=== PATIENT | male | born 1960 | race Caucasian/White ===

== ENCOUNTER 2017-10-24 05:52 | Emergency (ER) | payer BC ==
[2017-10-24] MEDS ORDERED: Sodium Chloride 0.9% 1,000 ML IV ONE (05:56)
[2017-10-24] MEDS ORDERED: Ondansetron 4 MG/2 ML SDV IVPUSH ONE (05:56)
[2017-10-24] MEDS ORDERED: Ketorolac 30 MG/ML SDV IVPUSH ONE (05:56)
--- NOTE | 2017-10-24 05:57 | EDM.PDOC ---
<Min Andres - Last Filed: 10/24/17 06:09> ED HPI GENERAL MEDICAL PROBLEM - General Stated Complaint: PAIN ON RIGHT SIDE Time Seen by Provider: 10/24/17 05:57 Source of Information: Reports: Patient - History of Present Illness INITIAL COMMENTS - FREE TEXT/NARRATIVE: HISTORY AND PHYSICAL: History of present illness: [Patient presents with loose stools nausea and vomiting since Saturday he's had some increasing right lower quadrant pain over the last 24 hours no fever chills sweats No chest pain shortness breath headache dizziness palpitation no urine symptoms Review of systems: As per history of present illness and below otherwise all systems reviewed and negative. Past medical history: As per history of present illness and as reviewed below otherwise noncontributory. Surgical history: As per history of present illness and as reviewed below otherwise noncontributory. Social history: No reported history of drug or alcohol abuse. Family history: As per history of present illness and as reviewed below otherwise noncontributory. Physical exam: HEENT: Atraumatic, normocephalic, pupils reactive, negative for conjunctival pallor or scleral icterus, mucous membranes moist, throat clear, neck supple, nontender, trachea midline. Lungs: Clear to auscultation, breath sounds equal bilaterally, chest nontender. Heart: S1S2, regular, negative for clicks, rubs, or JVD. Abdomen: Soft, nondistended, tender on deep palpation in the right lower quadrant with guarding no rebound. Negative for masses or hepatosplenomegaly. Negative for costovertebral tenderness. Pelvis: Stable nontender. Genitourinary: Deferred. Rectal: Deferred. Extremities: Atraumatic, negative for cords or calf pain. Neurovascular unremarkable. Neuro: Awake, alert, oriented. Cranial nerves II through XII unremarkable. Cerebellum unremarkable. Motor and sensory unremarkable throughout. Exam nonfocal. Diagnostics: [EBC CMP UA troponin lipase EKG Chest [address] abdomen pelvis with contrast ] Therapeutics: [Liter normal saline bolus Zofran 8 mg IV Toradol 30 mg IV ] Impression: Abdominal pain Definitive disposition and diagnosis as appropriate pending reevaluation and review of above. Abdomen Pain Score (Numeric/FACES): 5 - Related Data Allergies Allergy/AdvReac Type Severity Reaction Status Date / Time No Known Allergies Allergy Verified 10/24/17 06:05 Home Meds: Home Meds Levothyroxine 100 mcg PO ACBRK 11/17/13 [History] Esomeprazole [NexIUM] 10 mg PO DAILY 10/24/17 [History] Past Medical History Other HEENT History: bottom partial Cardiovascular History: Reports: None Respiratory History: Reports: None Gastrointestinal History: Reports: Colon Polyp Other Gastrointestinal History: heartburn Genitourinary History: Reports: None Musculoskeletal History: Reports: None Neurological History: Reports: None Psychiatric History: Reports: None Endocrine/Metabolic History: Reports: Hypothyroidism, Obesity/BMI 30+ Hematologic History: Reports: None Immunologic History: Reports: None Oncologic (Cancer) History: Reports: None Dermatologic History: Reports: None Other Dermatologic History: dry skin - Infectious Disease History Infectious Disease History: Reports: Chicken Pox, Measles - Past Surgical History Other GI Surgeries/Procedures: intestinal polyp Social & Family History - Family History Family Medical History: Noncontributory Cardiac: Reports: Heart Failure Endocrine/Metabolic: Reports: Diabetes, type II Oncologic: Reports: Other (See Below) Other Oncologic Family History: throat - Tobacco Use Smoking Status *Q: Current Every Day Smoker Years of Tobacco use: 5 Packs/Tins Daily: 0.5 Used Tobacco, but Quit: No Second Hand Smoke Exposure: Yes - Alcohol Use Days Per Week of Alcohol Use: 0 Number of Drinks Per Day: 0 Total Drinks Per Week: 0 - Recreational Drug Use Recreational Drug Use: No Drug Use in Last 12 Months: No Course - Vital Signs Last Recorded V/S: Last Vital Signs Temp 36.6 C 10/24/17 06:05 Pulse 77 10/24/17 07:30 Resp 16 10/24/17 07:30 BP 123/74 10/24/17 07:30 Pulse Ox 93 L 10/24/17 07:30 - Orders/Labs/Meds Orders: Active Orders 24 hr Category Date Time Status EKG Documentation Completion [RC] STAT Care 10/24/17 06:26 Active Abdomen Pelvis w Cont [CT] Stat Exams 10/24/17 06:12 Taken Chest 1V Frontal [CR] Stat Exams 10/24/17 06:26 Taken Labs: Laboratory Tests 10/24/17 10/24/17 10/24/17 Range/Units 06:10 06:10 07:09 WBC 11.09 H (4.0-11.0) K/uL RBC 5.07 (4.50-5.90) M/uL Hgb 16.7 (13.0-17.0) g/dL Hct 49.6 (38.0-50.0) % MCV 97.8 (80.0-98.0) fL MCH 32.9 H (27.0-32.0) pg MCHC 33.7 (31.0-37.0) g/dL RDW Std Deviation 52.6 (28.0-62.0) fl RDW Coeff of Steve 15 (11.0-15.0) % Plt Count 242 (150-400) K/uL MPV 10.60 (7.40-12.00) fL Neut % (Auto) 56.1 (48.0-80.0) % Lymph % (Auto) 30.7 (16.0-40.0) % [place] % (Auto) 7.8 (0.0-15.0) % Eos % (Auto) 4.9 (0.0-7.0) % Baso % (Auto) 0.5 (0.0-1.5) % Neut # (Auto) 6.2 H (1.4-5.7) K/uL Lymph # (Auto) 3.4 H (0.6-2.4) K/uL [place] # (Auto) 0.9 H (0.0-0.8) K/uL Eos # (Auto) 0.5 (0.0-0.7) K/uL Baso # (Auto) 0.1 (0.0-0.1) K/uL Nucleated RBC % 0.0 /100WBC Nucleated RBCs # 0 K/uL Sodium 141 (136-148) mmol/L Potassium 3.9 (3.5-5.1) mmol/L Chloride 105 (98-107) mmol/L Carbon Dioxide 28.0 (21.0-32.0) mmol/L BUN 13 (7.0-18.0) mg/dL Creatinine 1.3 (0.8-1.3) mg/dL Est Cr Clr Drug Dosing 60.03 mL/min Estimated GFR (MDRD) 57.3 ml/min Glucose 120 H (74-106) mg/dL Calcium 9.1 (8.5-10.1) mg/dL Total Bilirubin 0.3 (0.2-1.0) mg/dL AST 13 L (15-37) IU/L ALT 28 (14-63) IU/L Alkaline Phosphatase 67 (46-116) U/L Troponin I < 0.050 (0.000-0.056) ng/mL Total Protein 7.0 (6.4-8.2) g/dL Albumin 3.6 (3.4-5.0) g/dL Globulin 3.4 (2.0-3.5) g/dL Albumin/Globulin Ratio 1.1 L (1.3-2.8) Lipase 105 (73-393) U/L Urine Color YELLOW Urine Appearance CLEAR Urine pH 5.5 (5.0-8.0) Ur Specific [place] >= 1.030 (1.001-1.035) Urine Protein NEGATIVE (NEGATIVE) mg/dL Urine Glucose (UA) NEGATIVE (NEGATIVE) mg/dL Urine Ketones NEGATIVE (NEGATIVE) mg/dL Urine Occult Blood NEGATIVE (NEGATIVE) Urine Nitrite NEGATIVE (NEGATIVE) Urine Bilirubin SMALL H (NEGATIVE) Urine Ictotest NEGATIVE Urine Urobilinogen 0.2 (<2.0) EU/dL Ur Leukocyte Esterase NEGATIVE (NEGATIVE) Urine RBC 0-1 (0-2/HPF) Urine WBC 0-1 (0-5/HPF) Ur Epithelial Cells RARE (NONE-FEW) Urine Bacteria RARE (NEGATIVE) Meds: Medications Discontinued Medications Generic Name Dose Route Start Last Admin Trade Name Freq PRN Reason Stop Dose Admin Sodium Chloride 1,000 mls @ 999 mls/hr 10/24/17 05:56 10/24/17 06:15 Normal Saline IV 10/24/17 06:56 999 mls/hr STAT ONE Administration Iopamidol 100 ml 10/24/17 06:35 10/24/17 06:36 Isovue Multipack-370 (76%) IVPUSH 10/24/17 06:36 100 ml ONETIME STA Administration Ketorolac Tromethamine 30 mg 10/24/17 05:56 10/24/17 06:19 Toradol IVPUSH 10/24/17 05:57 30 mg ONETIME ONE Administration Ondansetron HCl 8 mg 10/24/17 05:56 10/24/17 06:16 Zofran IVPUSH 10/24/17 05:57 8 mg ONETIME ONE Administration Departure - Departure Disposition: Home, Self-Care 01 Clinical Impression: Abdominal pain, Vomiting - Discharge Information Referrals: Araceli Mix NP [Primary Care Provider] - Additional Instructions: The following information is given to patients seen in the emergency department who are being discharged to home. This information is to outline your options for follow-up care. We provide all patients seen in our emergency department with a follow-up referral. The need for follow-up, as well as the timing and circumstances, are variable depending upon the specifics of your emergency department visit. If you don't have a primary care physician on staff, we will provide you with a referral. We always advise you to contact your personal physician following an emergency department visit to inform them of the circumstance of the visit and for follow-up with them and/or the need for any referrals to a consulting specialist. The emergency department will also refer you to a specialist when appropriate. This referral assures that you have the opportunity for followup care with a specialist. All of these measure are taken in an effort to provide you with optimal care, which includes your followup. Under all circumstances we always encourage you to contact your private physician who remains a resource for coordinating your care. When calling for followup care, please make the office aware that this follow-up is from your recent emergency room visit. If for any reason you are refused follow-up, please contact the [facility] emergency department at and asked to speak to the emergency department charge nurse. Push fluids clear liquids 24 hours avoid dairy 72 hours follow-up primary medical doctor return as needed as discussed] <Ronaldo Calixto - Last Filed: 10/24/17 08:38> ED ROS GENERAL - Review of Systems Review Of Systems: ROS reveals no pertinent complaints other than HPI. ED EXAM, GENERAL - Physical Exam Exam: See Below (See dictation) Course - Vital Signs Text/Narrative:: Chest x-ray CT abdomen routine labs unremarkable patient be discharged home with diagnosis of vomiting/abdominal pain follow-up with primary medical doctor clearly present 24 hours bland diet avoiding dairy 72 hours return as needed as discussed Departure - Departure Time of Disposition: 08:37 Condition: Good
[2017-10-24] MEDS ORDERED: Iopamidol 755 MG/ML 200 ML Multipack Bottle IVPUSH STA (06:35)
[2017-10-24 06:53] LABS: CHLORIDE,CL 105 mmol/L (98-107); SODIUM,NA 141 mmol/L (136-148)
[2017-10-24 08:54] VITALS: BP 116/79
--- NOTE | 2017-10-24 13:44 | CR ---
EXAM DATE: 10/24/17 PATIENT'S AGE: 57 Patient: SIMBA RILEY Facility: [place], [place] Site . Site : 1960 Study: XRay Chest [id number] 7:28:59 AM Ordering Physician: Darion Copeland Final Report: INDICATION: pain. SOB. FINDINGS: A single PA chest x-ray shows a normal cardiac silhouette. The lungs show no focal pulmonary opacities. Sharp pleural margins. No pneumothorax. IMPRESSION: No evidence of acute pulmonary abnormalities. Dictated by Willie Canada MD @ 10/24/2017 7:41:27 AM Dictated by: Willie Canada MD @ 10/24/2017 07:41:45 (Electronic Signature) Report Signed by Proxy. [facility] [place] [facility]
--- NOTE | 2017-10-24 13:45 | CT ---
EXAM DATE: 10/24/17 PATIENT'S AGE: 57 Patient: SIMBA RLIEY Facility: [place], [place] Site . Site : 1960 Study: CT Abdomen/Pelvis [id number]/22/2018 7:46:14 AM Ordering Physician: Darion Copeland Final Report: INDICATION: pain COMPARISON: CT scan of the abdomen and pelvis dated 11 November 2015. TECHNIQUE: CT scan of the abdomen and pelvis with 100 cc of Isovue-370 given intravenously. FINDINGS: The lung bases show mild dependent atelectasis. No focal abnormalities identified in the visualized portions of the liver, spleen, pancreas, adrenal glands, and kidneys. No hydronephrosis. No obstructing uroliths. Colonic diverticulosis with no evidence of diverticulitis. The remainder of the GI tract is incompletely distended but shows no gross abnormalities. The stomach and GE junction are not well assessed. No retroperitoneal, pelvic sidewall, or mesenteric adenopathy. Mild atherosclerotic vascular calcifications. The mesenteric vessels are patent. Mild degenerative changes of the spine. IMPRESSION: No acute abnormalities of the abdomen or pelvis identified. Dictated by Willie Canada MD @ 10/24/2017 8:20:25 AM Dictated by: Willie Canada MD @ 10/24/2017 08:20:34 (Electronic Signature) Report Signed by Proxy. [facility]
== END 2017-10-24 08:58 | disposition home or self-care (01) ==
LOC: MW.ED 05:52
DX: R10.31 Right lower quadrant pain (principal); R11.2 Nausea with vomiting, unspecified; R19.7 Diarrhea, unspecified; E03.9 Hypothyroidism, unspecified; F17.210 Nicotine dependence, cigarettes, uncomplicated; Z79.899 Other long term (current) drug therapy; E66.9 Obesity, unspecified; Z86.19 Personal history of other infectious and parasitic diseases; Z68.41 Body mass index [BMI] 40.0-44.9, adult
CPT/HCPCS: 36415; 71045; 74177; 80053; 81001; 83690; 84484; 85025; 93005; 96374; 96375; 99284; J1885; J2405; J7040; Q9967; 96361; 99283

== ENCOUNTER 2020-03-07 06:32 | Emergency (ER) | payer BC ==
[2020-03-07] MEDS ORDERED: Sodium Chloride 0.9% 10 ML Syringe FLUSH PRN (06:38)
[2020-03-07] MEDS ORDERED: Sodium Chloride 0.9% 2.5 ML Syringe FLUSH PRN (06:38)
--- NOTE | 2020-03-07 06:41 | EDM.PDOC ---
<Neville Massey - Last Filed: 03/07/20 06:51> ED HPI GENERAL MEDICAL PROBLEM - General Stated Complaint: LOWER LEFT BACK PAIN, SHORTNESS OF BREATH Time Seen by Provider: 03/07/20 06:33 - History of Present Illness INITIAL COMMENTS - FREE TEXT/NARRATIVE: History of present illness: This 59-year-old gentleman has pain in the left lateral chest wall for a week. It is dull and moderately severe. It is causing him to have exercise intolerance with dyspnea. He is not nauseated or diaphoretic. The pain is worse with exertion. Patient is a smoker. No cough or fever. [] Review of systems: As per history of present illness and below otherwise all systems reviewed and negative. Past medical history: As per history of present illness and as reviewed below otherwise noncontributory. Surgical history: As per history of present illness and as reviewed below otherwise noncontributory. Social history: No reported history of drug or alcohol abuse. The patient does smoke Family history: As per history of present illness and as reviewed below otherwise noncontributory. Her father had coronary vessel disease and at the age of 76 Physical exam: Constitutional - well developed, well-nourished and in no acute distress. Patient is markedly over the ideal body weight for height HEENT - normocephalic, no evidence of trauma - external nose and mouth normal - no mass in neck and no JVD - mucosae moist EYES - full EOM, PERRL, no icterus - no evidence of inflammation, injection, or drainage Respiratory - no respiratory distress, equal bilateral expansion, lungs clear to auscultation and no abnormal lung sounds Cardiovascular - Regular Rhythm with S1 and S2 appreciated and no murmur, gallop or rub. GI - abdomen soft without distension or organomegaly - normal bowel sounds - no guard or rebound Musculoskeletal no gross deformity of long bones or joints - no tenderness, swelling or edema Neurologic - Alert and oriented times four - CN II-XII grossly intact - motor sensory and coordination symmetrically normal Psychiatric - appropriate mood and affect with normal thought content Hematologic - No petechiae or purpura - mucosa appropriate color and sclera not pale - normal nail bed color and refill Integument - no rash or evidence of trauma - normal turgor Diagnostics: EKG labs x-ray and trial of nitroglycerin [] Therapeutics: Aspirin [] Impression: Chest pain [] Plan: [] Definitive disposition and diagnosis as appropriate pending reevaluation and review of above. L posterior ribs Pain Score (Numeric/FACES): 8 - Related Data Allergies Allergy/AdvReac Type Severity Reaction Status Date / Time No Known Allergies Allergy Verified 10/24/17 06:05 Home Meds: Home Meds Levothyroxine 100 mcg PO ACBRK 11/17/13 [History] Cyclobenzaprine [Flexeril] 10 mg PO TID #21 tab 03/07/20 [Rx] Omeprazole 20 mg PO DAILY 03/07/20 [History] Past Medical History HEENT History: Reports: None Other HEENT History: bottom partial Cardiovascular History: Reports: None Respiratory History: Reports: None Gastrointestinal History: Reports: Colon Polyp Other Gastrointestinal History: heartburn Genitourinary History: Reports: None Musculoskeletal History: Reports: None Neurological History: Reports: None Psychiatric History: Reports: None Endocrine/Metabolic History: Reports: Hypothyroidism, Obesity/BMI 30+ Hematologic History: Reports: None Immunologic History: Reports: None Oncologic (Cancer) History: Reports: None Dermatologic History: Reports: None Other Dermatologic History: dry skin - Infectious Disease History Infectious Disease History: Reports: Chicken Pox, Measles - Past Surgical History Other GI Surgeries/Procedures: intestinal polyp Social & Family History - Family History Family Medical History: Noncontributory Cardiac: Reports: Heart Failure Endocrine/Metabolic: Reports: Diabetes, type II Oncologic: Reports: Other (See Below) Other Oncologic Family History: throat - Caffeine Use Caffeine Use: Reports: Coffee ED ROS GENERAL - Review of Systems Review Of Systems: Comprehensive ROS is negative, except as noted in HPI. ED EXAM, GENERAL - Physical Exam Exam: See Below Free Text/Narrative:: Physical exam as in the HPI EKG INTERPRETATION Rhythm: NSR Rate (Beats/Min): 80 P-Wave: Present QRS: Other (Anteroseptal Q waves) ST-T: Depressed (Depressed in leads V4 5 and 6) Comparison: Other: (Compared to 10/24/[address] depression in the precordial lateral leads) EKG Interpretation Comments: No obvious injury but possible lateral ischemia Departure - Departure Disposition: Home, Self-Care 01 Clinical Impression: Chest pain - Discharge Information Instructions: Nonspecific Chest Pain, Adult Referrals: Arnoldo Vazquez MD [Primary Care Provider] - Additional Instructions: The following information is given to patients seen in the emergency department who are being discharged to home. This information is to outline your options for follow-up care. We provide all patients seen in our emergency department with a follow-up referral. The need for follow-up, as well as the timing and circumstances, are variable depending upon the specifics of your emergency department visit. If you don't have a primary care physician on staff, we will provide you with a referral. We always advise you to contact your personal physician following an emergency department visit to inform them of the circumstance of the visit and for follow-up with them and/or the need for any referrals to a consulting specialist. The emergency department will also refer you to a specialist when appropriate. This referral assures that you have the opportunity for follow-up care with a specialist. All of these measure are taken in an effort to provide you with optimal care, which includes your follow-up. Under all circumstances we always encourage you to contact your private physician who remains a resource for coordinating your care. When calling for follow-up care, please make the office aware that this follow-up is from your recent emergency room visit. If for any reason you are refused follow-up, please contact the [facility] Emergency Department at and asked to speak to the emergency department charge nurse. <Prince Rascon - Last Filed: 03/07/20 10:06> Course - Vital Signs Text/Narrative:: I reexamined the patient at 830 and at 10 AM. He describes to me a sensation of grabbing spasm when he twists or leans forward in his left thorax. When he has these episodic spasms he has trouble taking a deep breath these episodes are episodic lasting seconds and after he is at rest they go away completely and there is no shortness of breath. He can induce this by twisting and bending his torso. EKGs are nonischemic a second EKG was obtained by me was read as normal sinus rhythm rate of [address]-T changes no jonathan ischemia. 2 troponins were obtained they were negative do not feel this represents an acute coronary syndrome patient be discharged home Tylenol for pain Flexeril for the spasms. Follow-up with primary care Last Recorded V/S: Last Vital Signs Temp 36.2 C 03/07/20 06:38 Pulse 78 03/07/20 09:22 Resp 16 03/07/20 09:22 BP 108/66 03/07/20 09:22 Pulse Ox 96 03/07/20 09:22 - Orders/Labs/Meds Orders: Active Orders 24 hr Category Date Time Status Cardiac Monitoring [RC] . DIRECTED Care 03/07/20 06:38 Active EKG Documentation Completion [RC] AM Care 03/07/20 06:38 Active EKG Documentation Completion [RC] STAT Care 03/07/20 09:00 Active UA W/SHERRI RFLX IF INDICATED [URIN] Stat Lab 03/07/20 06:39 Ordered Nitroglycerin [Nitrostat] Med 03/07/20 06:47 Active 0.4 mg SL Q5M PRN Sodium Chloride 0.9% [Saline Flush] Med 03/07/20 06:38 Active 10 ml FLUSH ASDIRECTED PRN Sodium Chloride 0.9% [Saline Flush] Med 03/07/20 06:38 Active 2.5 ml FLUSH ASDIRECTED PRN Saline Lock Insert [OM.PC] Stat Oth 03/07/20 06:38 Ordered Medication Orders Nitroglycerin (Nitrostat) 0.4 mg SL Q5M PRN PRN Reason: Chest Pain Last Admin: 03/07/20 07:08 Dose: 0.4 mg Documented by: Admin: 03/07/20 07:03 Dose: 0.4 mg Documented by: ERIC Sodium Chloride (Saline Flush) 10 ml FLUSH ASDIRECTED PRN PRN Reason: Keep Vein Open Sodium Chloride (Saline Flush) 2.5 ml FLUSH ASDIRECTED PRN PRN Reason: Keep Vein Open Labs: Laboratory Tests 03/07/20 03/07/20 03/07/20 Range/Units 06:45 06:45 09:10 WBC 7.71 (4.0-11.0) K/uL RBC 4.80 (4.50-5.90) M/uL Hgb 15.6 (13.0-17.0) g/dL Hct 46.5 (38.0-50.0) % MCV 96.9 (80.0-98.0) fL MCH 32.5 H (27.0-32.0) pg MCHC 33.5 (31.0-37.0) g/dL RDW Std Deviation 50.9 (28.0-62.0) fl RDW Coeff of Steve 14 (11.0-15.0) % Plt Count 231 (150-400) K/uL MPV 10.30 (7.40-12.00) fL Neut % (Auto) 51.3 (48.0-80.0) % Lymph % (Auto) 31.3 (16.0-40.0) % [place] % (Auto) 9.7 (0.0-15.0) % Eos % (Auto) 7.3 H (0.0-7.0) % Baso % (Auto) 0.4 (0.0-1.5) % Neut # (Auto) 4.0 (1.4-5.7) K/uL Lymph # (Auto) 2.4 (0.6-2.4) K/uL [place] # (Auto) 0.8 (0.0-0.8) K/uL Eos # (Auto) 0.6 (0.0-0.7) K/uL Baso # (Auto) 0.0 (0.0-0.1) K/uL Nucleated RBC % 0.0 /100WBC Nucleated RBCs # 0 K/uL Sodium 140 (136-148) mmol/L Potassium 4.0 (3.5-5.1) mmol/L Chloride 105 (98-107) mmol/L Carbon Dioxide 26.7 (21.0-32.0) mmol/L BUN 13 (7.0-18.0) mg/dL Creatinine 1.3 (0.8-1.3) mg/dL Est Cr Clr Drug Dosing TNP Estimated GFR (MDRD) 56.9 ml/min Glucose 140 H (74-106) mg/dL Calcium 8.2 L (8.5-10.1) mg/dL Magnesium 1.6 L (1.8-2.4) mg/dL Total Bilirubin 0.3 (0.2-1.0) mg/dL AST 15 (15-37) IU/L ALT 36 (14-63) IU/L Alkaline Phosphatase 90 (46-116) U/L Troponin I < 0.050 < 0.050 (0.000-0.056) ng/mL Total Protein 6.8 (6.4-8.2) g/dL Albumin 3.7 (3.4-5.0) g/dL Globulin 3.1 (2.6-4.0) g/dL Albumin/Globulin Ratio 1.2 (0.9-1.6) Meds: Medications Generic Name Dose Route Start Last Admin Trade Name Freq PRN Reason Stop Dose Admin Nitroglycerin 0.4 mg 03/07/20 06:47 03/07/20 07:08 Nitrostat SL 0.4 mg Q5M PRN Administration Chest Pain Sodium Chloride 10 ml 03/07/20 06:38 Saline Flush FLUSH ASDIRECTED PRN Keep Vein Open Sodium Chloride 2.5 ml 03/07/20 06:38 Saline Flush FLUSH ASDIRECTED PRN Keep Vein Open Discontinued Medications Generic Name Dose Route Start Last Admin Trade Name Freq PRN Reason Stop Dose Admin Aspirin 324 mg 03/07/20 06:47 03/07/20 07:00 Aspirin PO 03/07/20 06:48 324 mg ONETIME ONE Administration Departure - Departure Time of Disposition: 10:04 Condition: Good - Discharge Information *PRESCRIPTION DRUG MONITORING PROGRAM REVIEWED*: Not Applicable *COPY OF PRESCRIPTION DRUG MONITORING REPORT IN PATIENT JENNIFER: Not Applicable Sepsis Event Note (ED) - Focused Exam Vital Signs: Vital Signs Temp Pulse Resp BP BP Pulse Ox 03/07/20 09:22 78 16 108/66 96 03/07/20 08:11 76 18 116/81 94 L 03/07/20 07:42 83 106/70 95 03/07/20 07:08 121/77 03/07/20 07:03 122/81 03/07/20 06:38 36.2 C 90 18 139/94 H 95 - My Orders Last 24 Hours: My Active Orders 03/07/20 09:00 EKG Documentation Completion [RC] STAT - Assessment/Plan Last 24 Hours: My Active Orders 03/07/20 09:00 EKG Documentation Completion [RC] STAT
[2020-03-07] MEDS ORDERED: Aspirin 81 MG Tab.Chew PO ONE (06:47)
[2020-03-07] MEDS: Nitroglycerin 0.4 MG Tab.SL SL PRN ×2 (07:03→07:08)
[2020-03-07 07:14] LABS: BLOOD UREA NITROGEN,BUN 13 mg/dL (7.0-18.0); CARBON DIOXIDE,CO2 26.7 mmol/L (21.0-32.0); CHLORIDE,CL 105 mmol/L (98-107); GLUCOSE RANDOM 140 mg/dL (74-106); SODIUM,NA 140 mmol/L (136-148)
--- NOTE | 2020-03-07 07:30 | CR ---
INDICATION: Chest pain. TECHNIQUE: AP image of the chest. COMPARISON: 10/24/2017. FINDINGS: Lungs clear. No pleural effusion or pneumothorax. Heart size and pulmonary vasculature within normal limits. No obvious rib fracture or other significant osseous abnormality. IMPRESSION: Negative chest. Dictated by Dagoberto Reid MD @ Mar 07 2020 7:28AM Signed by Dr. Dagoberto Reid @ Mar 07 2020 7:29AM
[2020-03-07 09:23] VITALS: PULSE 78
[2020-03-07 10:21] VITALS: BP 107/70
== END 2020-03-07 10:17 | disposition home or self-care (01) ==
LOC: MW.ED 06:32
DX: R07.89 Other chest pain (principal); E03.9 Hypothyroidism, unspecified; E66.9 Obesity, unspecified; Z79.899 Other long term (current) drug therapy
CPT/HCPCS: 36415; 71045; 80053; 83735; 84484; 85025; 93005; 99285; A9270; 99283

== ENCOUNTER 2022-12-02 14:34 | Emergency (ER) | payer BC ==
[2022-12-02] MEDS ORDERED: Orphenadrine 60 MG/2 ML Inj IM ONE (16:27)
[2022-12-02] MEDS ORDERED: Ketorolac 30 MG/ML SDV IM ONE (16:27)
[2022-12-02 18:37] VITALS: BP 128/78; PULSE 77
== END 2022-12-02 18:37 | disposition home or self-care (01) ==
LOC: MW.ED 14:34
DX: M54.50 Low back pain, unspecified (principal); E03.9 Hypothyroidism, unspecified; E66.9 Obesity, unspecified; Z68.41 Body mass index [BMI] 40.0-44.9, adult; Z79.899 Other long term (current) drug therapy
CPT/HCPCS: 72131; 81003; 96372; 99284; J1885; J2360; 99283